=== PATIENT | female | born 1940 | race Caucasian/White ===

== ENCOUNTER 2017-09-15 15:11 | Emergency (ER) | payer MEDICARE, OTHER ==
--- NOTE | 2017-09-15 15:51 | RAD ---
PA AND LATERAL CHEST: 09/15/17 HISTORY: Cough. Heart size is within normal limits. There are atherosclerotic changes of the aorta. There is some lora ear atelectasis in the right middle lobe. No focal infiltrative process. Slight elevation of the righ t hemidiaphragm. IMPRESSION: Linear atelectasis or scarring in the right middle lobe. POS: [facility]
== END 2017-09-15 16:05 | disposition home or self-care (01) ==
LOC: SCSER 15:11
DX: J40 Bronchitis, not specified as acute or chronic (principal); I48.91 Unspecified atrial fibrillation; I10 Essential (primary) hypertension; Z79.899 Other long term (current) drug therapy
CPT/HCPCS: 71020

== ENCOUNTER 2017-09-30 07:42 | Emergency (ER) | payer MEDICARE, OTHER ==
[2017-09-30 10:11] LABS: Bilirubin Negative (Negative); Blood, Urine Negative (Negative); Glucose, Urine (Dipstick) Negative (Negative); Ketone, Urine Negative (Negative); Nitrite Negative (Negative); Protein, Urine (Dipstick) Negative (Neg-Trace); Urobilinogen 0.2 mg/dL (0.2-1.0)
[2017-09-30 10:49] LABS: #Lymphocytes 1.2 thou/uL (1.20-3.40); #Monocytes 0.3 thou/uL (0.11-0.59); #Neutrophils 3.9 thou/uL (1.40-6.50); %Basophils 0.8 % (0.0-1.0); %Eosinophils 0.8 % (0.0-10.0); %Lymphocytes 21.4 % (21.0-51.0); %Monocytes 4.9 % (0.0-10.0); Hematocrit 36.2 % (36.0-47.0); Mean Platelet Volume 6.5 fL (7.4-10.4); Red Blood Cell (RBC) Count 3.76 mill/uL (4.20-5.40); White Blood Cell (WBC) Count 5.4 thou/uL (4.8-10.8)
[2017-09-30 11:05] LABS: ALT (SGPT) 15 U/L (8-55); AST (SGOT) 20 U/L (5-34); Alkaline Phosphatase 41 U/L (40-150); Anion Gap 11 mmol/L (10-20); BUN (Urea Nitrogen) 12 mg/dL (9.8-20.1); Bilirubin, Total 0.5 mg/dL (0.2-1.2); CK (CPK) 67 U/L (29-168); Calc. Creatinine Clearance 0 mL/min (70-130); Calcium 9.2 mg/dL (7.8-10.44); Carbon Dioxide 23 mmol/L (23-31); Chloride 111 mmol/L (98-107); Estimated GFR-MDRD 90; Globulin 2.5 g/dL (2.4-3.5); Protein, Total 6.3 g/dL (6.0-8.3)
[2017-09-30 11:08] LABS: Troponin I Less than 0.010 ng/mL (< 0.028)
--- NOTE | 2017-09-30 12:08 | ULT ---
ULTRASOUND WITH DOPPLER DUPLEX VENOUS LOWER EXTREMITIES BILATERAL: HISTORY: A 77-year-old female with bilateral lower extremity edema. TECHNIQUE: Color flow Doppler, spectral waveform analysis of pulsed Doppler, and najera-scale imaging with nena augustin and augmentation, were used to evaluate the bilateral common femoral, femoral, popliteal, runway model ior tibial, and superficial femoral, veins; and the proximal portions of the profunda femoral and gre ater saphenous, veins. FINDINGS: There is normal compressibility, demonstration of blood flow by color Doppler and pulsed Doppler, and response to augmentation, in all interrogated veins. IMPRESSION: Negative. No deep vein thrombosis in the bilateral lower extremities. jn[] POS: [facility]
--- NOTE | 2017-09-30 12:09 | RAD ---
PORTABLE CHEST: COMPARISON: 11/07/12 study. History Chest pain. FINDINGS: Heart size is within normal limits. There are atherosclerotic changes of the aorta. The lungs are c lear of infiltrates. IMPRESSION: No active intrathoracic disease. POS: [facility]
[2017-09-30] MEDS ORDERED: hydrALAZINE 20 MG/ML VIAL ONE ×2 (12:45→13:42)
--- NOTE | 2017-09-30 13:00 | CT ---
CT OF BRAIN PERFORMED WITHOUT CONTRAST ENHANCEMENT: HISTORY: Elevated blood pressure and headache. FINDINGS: Ventricular and cisternal system shows some fairly age-appropriate change. There is decreased attenu ation of the periventricular white matter suggesting some chronic ischemic white matter change. Ther e is what is probably an old lacunar infarct in the right periventricular white matter. There are no signs of intracerebral hemorrhage or extraaxial fluid collections. The mastoid air cells and visual ized sinuses are clear. IMPRESSION: No acute intracranial abnormalities. POS: [facility]
--- NOTE | 2017-10-27 10:41 | EKG ---
Test Reason : Blood Pressure : / mmHG Vent. Rate : 062 BPM Atrial Rate : 062 BPM P-R Int : 152 ms QRS Dur : 098 ms QT Int : 396 ms P-R-T Axes : 056 -33 -51 degrees QTc Int : 401 ms Normal sinus rhythm Left axis deviation Nonspecific T wave abnormality Abnormal ECG Confirmed by JENN CEDILLO M.D. ([id number]), deputy editor in chief JOY HARDIN ([id number]) on 10/27/2017 10:41:26 AM Referred By: Confirmed By:JENN CEDILLO M.D.
== END 2017-09-30 15:05 | disposition home or self-care (01) ==
LOC: ERS 07:42
DX: I10 Essential (primary) hypertension (principal); I48.91 Unspecified atrial fibrillation; Z79.82 Long term (current) use of aspirin; Z79.899 Other long term (current) drug therapy
CPT/HCPCS: 70450; 71010; 80053; 81003; 82550; 82553; 83880; 84484; 85025; 93005; 93970; 96374; 96376; J0360

== ENCOUNTER 2017-10-17 08:46 | Outpatient (CLI) | payer MEDICARE, OTHER ==
--- NOTE | 2017-10-17 10:53 | CT ---
CT ABDOMEN AND PELVIS PRE AND POST IV CONTRAST: Technique: Multiple axial tomograms were obtained through the abdomen and pelvis pre and post IV cont rast enhancement. Post contrast images were obtained in a portal venous and delayed venous phase foll owing urographic protocol. History: Hematuria. Frequent UTIs. FINDINGS: Review of the noncontrast images shows no evidence of urinary tract calculus. Ureters appear normal. The urinary bladder is distended and appears unremarkable. There are numerous lesions involving the right kidney. At least two of these are exophytic and comple x. Posteriorly there is a 1.5 cm lesion with a peripheral calcification with Hounsfield units on the noncontrast study recorded at 49-50. Post contrast Hounsfield units were recorded at 51 indicating no significant enhancement and suggesting a complex cyst. Another complex exophytic lesion from the lat eral right kidney has precontrast density of 23 Hounsfield units. This lesion does not show significa nt enhancement. There are other smaller lower density lesions involving the right kidney which are montoya bcentimeter. 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 There are two ureters proximally. These ureters fus e in the upper abdomen. There may be one or two tiny low density foci in the left renal cortex which are subcentimeter and ca nnot be adequately characterized. No evidence of enhancing renal mass identified on either side. On t he delayed sequence, contrast secretion is seen in the collecting structures and these appear unremar kable with no filling defect identified. Lung bases are clear. Liver, spleen, and pancreas unremarkable. Small sliding diaphragmatic hernia. Stomach, duodenum and small bowel loops appear unremarkable. There is scattered diverticula seen thro ughout the colon. Aorta suggests calcification but is normal caliber. No adenopathy. Images through t he pelvis show evidence of hysterectomy. Osseous structures are unremarkable with degenerative changes seen. IMPRESSION: 1. There are numerous low density foci involving the right kidney. Two or three of these are exophyti c and at least two are complex. The larger one posteriorly has a peripheral calcification. These lesi ons suggest complex cystic lesions as discussed above. There are other tiny low density foci bilatera lly which are too small to adequately characterize. 2. No evidence of enhancing renal mass. No urinary tract calculus or hydronephrosis. 3. 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 The ureters fuse proximally. Both moiety appear unremarkable with no asymmetric dilatation. 4. Small sliding diaphragmatic hernia. 5. Scattered colonic diverticula throughout the colon. POS: [facility]
[2017-10-17] MEDS ORDERED: Iopamidol 370 76% 100 ML VIAL ONE (12:01)
== END 2017-10-17 08:47 | disposition home or self-care (01) ==
LOC: CT 08:46
PROVIDERS: ATTEND Urology
DX: N39.0 Urinary tract infection, site not specified (principal); K44.9 Diaphragmatic hernia without obstruction or gangrene; K57.32 Diverticulitis of large intestine without perforation or abscess without bleeding; Z87.448 Personal history of other diseases of urinary system
CPT/HCPCS: 74178

== ENCOUNTER 2017-10-24 12:42 | Outpatient (CLI) | payer MEDICARE, OTHER ==
--- NOTE | 2017-10-24 15:13 | MRI ---
MRI BRAIN WITH AND WITHOUT GADOLINIUM CONTRAST: History: Dizziness. FINDINGS: There is no evidence of acute intracranial hemorrhage or infarct. Chronic ischemic small vessel disea se is apparent within the periventricular white matter of each cerebral hemisphere. There is no mass effect, shift of midline structures, or abnormal areas of contrast enhancement. IMPRESSION: No acute intracranial abnormalities are demonstrated. POS: [facility]
== END 2017-10-24 12:43 | disposition home or self-care (01) ==
LOC: TBSIIMAG 12:42
PROVIDERS: ATTEND Internal Medicine
DX: N39.0 Urinary tract infection, site not specified (principal); Z87.448 Personal history of other diseases of urinary system
CPT/HCPCS: 70553

== ENCOUNTER 2018-04-23 10:03 | Emergency (ER) | payer MEDICARE ==
[2018-04-23 10:36] LABS: #Basophils 0.1 thou/uL (0.0-0.2); #Lymphocytes 0.2 thou/uL (1.20-3.40); #Monocytes 0.2 thou/uL (0.11-0.59); #Neutrophils 8.9 thou/uL (1.40-6.50); %Basophils 1.4 % (0.0-1.0); %Eosinophils 0.2 % (0.0-10.0); %Lymphocytes 2.4 % (21.0-51.0); %Monocytes 1.7 % (0.0-10.0); %Neutrophils 94.4 % (42.0-75.0); Hemoglobin 13.6 g/dL (12.0-16.0); Mean Corpuscular HGB CONC 34.3 g/dL (32.0-36.0); Mean Corpuscular Hemoglobin 32.6 pg (27.0-31.0); Mean Corpuscular Volume 95.2 fL (78.0-98.0); Mean Platelet Volume 6.9 fL (7.4-10.4); Platelet Count 179 thou/uL (130-400); RBC Distribution Width 12.3 % (11.5-14.5); Red Blood Cell (RBC) Count 4.18 mill/uL (4.20-5.40); White Blood Cell (WBC) Count 9.4 thou/uL (4.8-10.8)
[2018-04-23] MEDS ORDERED: Ondansetron ODT 4 MG TAB ONE (10:58)
[2018-04-23 10:59] LABS: ALT (SGPT) 17 U/L (8-55); AST (SGOT) 21 U/L (5-34); Albumin 4.2 g/dL (3.4-4.8); Alkaline Phosphatase 50 U/L (40-150); Anion Gap 17 mmol/L (10-20); BUN (Urea Nitrogen) 22 mg/dL (9.8-20.1); Bilirubin, Total 0.9 mg/dL (0.2-1.2); Calc. Creatinine Clearance 0 mL/min (70-130); Calcium 9.6 mg/dL (7.8-10.44); Carbon Dioxide 19 mmol/L (23-31); Chloride 107 mmol/L (98-107); Estimated GFR-MDRD 86; Globulin 2.5 g/dL (2.4-3.5); Glucose 129 mg/dL (83-110); Potassium 3.5 mmol/L (3.5-5.1); Protein, Total 6.7 g/dL (6.0-8.3); Sodium 139 mmol/L (136-145)
[2018-04-23 12:13] LABS: Bilirubin Small (Negative); Blood, Urine Negative (Negative); Clarity CLEAR (Clear); Glucose, Urine (Dipstick) Negative (Negative); Leukocyte Trace (Negative); Nitrite Negative (Negative); Protein, Urine (Dipstick) Trace mg/dL (Neg-Trace); Specific Gravity, Urine 1.027 (1.002-1.036); pH, Urine 6.5 (5.0-9.0)
[2018-04-23 12:14] LABS: Bacteria/HPF None Seen HPF (None Seen); Hyaline Casts/LPF 0-3 HYALINE CAST LPF (0-3 Hyaline); Pathc Cast-AUWi Flag 0.43 (0-2.49); Squamous Epithelial 0-3 HPF (0-3); WBC/HPF 0-3 HPF (0-3)
[2018-04-23 12:38] LABS: CKMB 1.6 ng/mL (0-6.6); Troponin I Less than 0.010 ng/mL (< 0.028)
== END 2018-04-23 15:03 | disposition home or self-care (01) ==
LOC: ERS 10:03
DX: R11.2 Nausea with vomiting, unspecified (principal); I48.91 Unspecified atrial fibrillation; I10 Essential (primary) hypertension; Z79.82 Long term (current) use of aspirin; Z79.899 Other long term (current) drug therapy
CPT/HCPCS: 36415; 80053; 81003; 81015; 82553; 83690; 84484; 85025; 93005; 96360; 96361; Q0162

== ENCOUNTER 2018-05-27 06:43 | Outpatient (CLI) | payer MEDICARE, OTHER | END 2018-05-27 06:44 | disposition home or self-care (01) | LOC: BICULT 06:43 | PROVIDERS: ATTEND Internal Medicine Gastroenterology | DX: K21.9 Gastro-esophageal reflux disease without esophagitis (principal); R10.11 Right upper quadrant pain | CPT/HCPCS: 76705 ==

== ENCOUNTER 2018-09-10 12:13 | Outpatient (CLI) | payer MEDICARE ==
--- NOTE | 2018-09-10 15:05 | MRI ---
MRI LUMBAR SPINE WITHOUT CONTRAST: Comparison: None. History: Chronic low back pain and lumbar stenosis. Technique: Multiplanar, multisequence MRI images were obtained of the lumbar spine without contrast. FINDINGS: Generalized disc desiccation is seen. Vertebral bodies demonstrate normal height and alignment withou t acute fracture or subluxation. The conus medullaris terminates normally at L1. There are multiple s mall cysts in the right kidney. The other prevertebral and paraspinal soft tissues are unremarkable. T12-L1: No significant posterior bulge or protrusion. No posterior facet arthrosis. No neural foramin al or central canal stenosis. L1-2: A small disc osteophyte complex is seen. No posterior facet arthrosis. Mild central canal steno sis. Mild bilateral neural foraminal stenosis. L2-3: A small disc osteophyte complex is seen. No posterior facet arthrosis. Mild to moderate central canal stenosis. Moderate bilateral neural foraminal stenosis. L3-4: Small disc osteophyte complex is seen. Mild posterior facet arthrosis. Mild central canal steno sis. Mild bilateral neural foraminal stenosis. L4-5: A moderate disc osteophyte complex is seen. Moderate bilateral posterior facet arthrosis. Moder ate to severe central canal stenosis. Moderate bilateral neural foraminal stenosis. L5-S1: A moderate disc osteophyte complex is seen. No posterior facet arthrosis. Mild ventral canal s tenosis. Mild bilateral neural foraminal stenosis. IMPRESSION: Degenerative changes of the lumbar spine as above. This is greatest at L4-5. POS: [facility]
--- NOTE | 2018-09-10 15:32 | RAD ---
FOUR VIEWS LUMBOSACRAL SPINE: Comparison: 03-06-17 History: Lumbar stenosis with neurogenic claudication. FINDINGS: AP, lateral, flexion and extension views of the lumbosacral spine were performed. There is a grade I anterolisthesis of L4 on L5, unchanged. The vertebral bodies demonstrate normal height without fractu re. Alignment is unchanged with flexion and extension. Small osteophytes are seen throughout the lumb ar spine. IMPRESSION: Degenerative changes of the lumbar spine with spondylolisthesis of L4 on L5. POS: [facility]
--- NOTE | 2018-09-10 15:51 | MRI ---
THORACIC SPINE MRI WITHOUT CONTRAST: HISTORY: Chronic back pain. Neural claudication. COMPARISON: None. TECHNIQUE: MRI of the thoracic spine is performed without intravenous Gadolinium administration. Multisequentia l, multiplanar imaging is performed. FINDINGS: Appropriate T1 marrow signal intensity of the thoracic vertebrae. Thoracic spine vertebral body heig ht is maintained. There is no fracture. Visualized mediastinum, lung parenchyma, and solid organs are unremarkable. Conus medullaris terminates at the inferior aspect of T12. The thoracic cord has a normal size and s ignal intensity. T2 hyperintensity in the liver measuring 5 mm. T2 hyperintensity in the right tabitha l cortex likely representing an exophytic cyst. T1-T2: Broad-based disk bulge. Moderate central canal stenosis. T2-T3: Central disk bulge. Mild central canal stenosis. T3-T4 through T4-T5: No significant posterior disk abnormality. No significant central canal stenos is. T5-T6, T6-T7, and T7-T8: Minimal disk bulge. No significant central canal stenosis. T8-T9 through T11-T12: No significant central canal stenosis. T12-L1: There is a disk-osteophyte complex. Mild central canal stenosis. Throughout the thoracic spine, neural foramen are patent. 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 POS: [facility]
== END 2018-09-10 12:14 | disposition home or self-care (01) ==
LOC: BICMRI 12:13
PROVIDERS: ATTEND Anesthesiology Pain Medicine
DX: M48.062 Spinal stenosis, lumbar region with neurogenic claudication (principal); M48.04 Spinal stenosis, thoracic region; M47.816 Spondylosis without myelopathy or radiculopathy, lumbar region; M43.16 Spondylolisthesis, lumbar region; M51.34 Other intervertebral disc degeneration, thoracic region
CPT/HCPCS: 72110; 72146; 72148

== ENCOUNTER 2018-10-15 11:21 | Emergency (ER) | payer MEDICARE ==
[2018-10-15] MEDS ORDERED: Acetaminophen 500 MG TAB ONE (12:00)
[2018-10-15 12:01] LABS: #Lymphocytes 1.2 thou/uL (1.20-3.40); #Monocytes 0.3 thou/uL (0.11-0.59); #Neutrophils 4.5 thou/uL (1.40-6.50); %Basophils 0.7 % (0.0-1.0); %Eosinophils 0.7 % (0.0-10.0); %Lymphocytes 19.5 % (21.0-51.0); %Monocytes 4.9 % (0.0-10.0); %Neutrophils 74.1 % (42.0-75.0); Hemoglobin 12.3 g/dL (12.0-16.0); Mean Corpuscular HGB CONC 35.1 g/dL (32.0-36.0); Mean Corpuscular Hemoglobin 31.1 pg (27.0-31.0); Mean Corpuscular Volume 88.6 fL (78.0-98.0); Mean Platelet Volume 7.2 fL (7.4-10.4); Platelet Count 148 thou/uL (130-400); RBC Distribution Width 12.3 % (11.5-14.5); Red Blood Cell (RBC) Count 3.96 mill/uL (4.20-5.40); White Blood Cell (WBC) Count 6.1 thou/uL (4.8-10.8)
[2018-10-15 12:10] LABS: ALT (SGPT) 17 U/L (8-55); AST (SGOT) 21 U/L (5-34); Albumin 4.2 g/dL (3.4-4.8); Alkaline Phosphatase 70 U/L (40-150); Anion Gap 15 mmol/L (10-20); BUN (Urea Nitrogen) 13 mg/dL (9.8-20.1); Bilirubin, Total 0.7 mg/dL (0.2-1.2); Calc. Creatinine Clearance 0 mL/min (70-130); Calcium 9.8 mg/dL (7.8-10.44); Carbon Dioxide 21 mmol/L (23-31); Chloride 109 mmol/L (98-107); Estimated GFR-MDRD 83; Globulin 2.8 g/dL (2.4-3.5); Glucose 97 mg/dL (83-110); Potassium 3.7 mmol/L (3.5-5.1); Sodium 141 mmol/L (136-145)
--- NOTE | 2018-10-15 12:39 | RAD ---
CHEST PA AND LATERAL: HISTORY: Chest pain. FINDINGS: Heart size is normal. Lungs are well expanded without focal areas of consolidation, pneumothorax, or pleural effusions. There is elevation of the right hemidiaphragm, which is stable since 09/15/2017. There are degenerative changes in the spine. IMPRESSION: No radiographic evidence of acute cardiopulmonary process. POS: [facility]
== END 2018-10-15 12:23 | disposition home or self-care (01) ==
LOC: SCSER 11:21
DX: T59.891A Toxic effect of other specified gases, fumes and vapors, accidental (unintentional), initial encounter (principal); I10 Essential (primary) hypertension; I48.91 Unspecified atrial fibrillation; Z79.899 Other long term (current) drug therapy
CPT/HCPCS: 71046; 80053; 84484; 85025; 93005

== ENCOUNTER 2020-08-21 19:21 | Observation (INO) | payer MEDICARE, OTHER ==
[2020-08-21] MEDS ORDERED: Lidocaine Viscous Sol 2% 15 ml UD Cup ONE (19:53)
[2020-08-21] MEDS ORDERED: Mag-Al 1200 mg/1200 mg/30 ML UDCUP ONE (19:53)
[2020-08-21] MEDS ORDERED: Aspirin 325 MG TAB ONE (19:53)
[2020-08-21] MEDS ORDERED: Famotidine 20 MG TAB ONE (19:53)
[2020-08-21] MEDS ORDERED: Nitroglycerin 2% Ointment 1 INCH/1 GM Packet ONE (19:54)
[2020-08-21 20:01] LABS: #Lymphocytes 1.7 thou/uL (1.20-3.40); #Monocytes 0.3 thou/uL (0.11-0.59); #Neutrophils 5.3 thou/uL (1.40-6.50); %Basophils 0.5 % (0.0-1.0); %Eosinophils 0.4 % (0.0-10.0); %Lymphocytes 22.9 % (21.0-51.0); %Monocytes 4.7 % (0.0-10.0); %Neutrophils 71.6 % (42.0-75.0); Hemoglobin 13.8 g/dL (12.0-16.0); Mean Corpuscular HGB CONC 34.9 g/dL (32.0-36.0); Mean Corpuscular Hemoglobin 33.2 pg (27.0-31.0); Mean Corpuscular Volume 95.3 fL (78.0-98.0); Mean Platelet Volume 7.1 fL (7.4-10.4); Platelet Count 181 thou/uL (130-400); RBC Distribution Width 11.9 % (11.5-14.5); Red Blood Cell (RBC) Count 4.14 mill/uL (4.20-5.40); White Blood Cell (WBC) Count 7.4 thou/uL (4.8-10.8)
[2020-08-21] MEDS ORDERED: Famotidine/PF 20 mg/2ml Vial ONE (20:04)
[2020-08-21 20:06] LABS: INR-International Normal Ratio 0.9; Prothrombin Time 12.5 sec (12.0-14.7)
[2020-08-21 20:07] LABS: PTT 32.2 sec (22.9-36.1)
--- NOTE | 2020-08-21 20:07 | RAD ---
PORTABLE CHEST: 08/21/20 HISTORY: Syncope and chest pain. COMPARISON: 09/30/17 exam. Heart size is within normal limits. Mediastinal structures are unremarkable. There are atheroscleroti c changes of the aorta there is mild elevation of the right hemidiaphragm. Some linear scarring in th e right base. IMPRESSION: No active intrathoracic disease. POS: [facility]
[2020-08-21 20:28] LABS: ALT (SGPT) 14 U/L (8-55); AST (SGOT) 23 U/L (5-34); Albumin 4.1 g/dL (3.4-4.8); Alkaline Phosphatase 85 U/L (40-110); Anion Gap 17 mmol/L (10-20); BUN (Urea Nitrogen) 18 mg/dL (9.8-20.1); Bilirubin, Total 0.4 mg/dL (0.2-1.2); Calc. Creatinine Clearance 0 mL/min (70-130); Calcium 9.4 mg/dL (7.8-10.44); Carbon Dioxide 21 mmol/L (23-31); Chloride 104 mmol/L (98-107); Estimated GFR-MDRD 78; Globulin 2.8 g/dL (2.4-3.5); Glucose 133 mg/dL (83-110); Lipase 10 U/L (8-78); Potassium 4.2 mmol/L (3.5-5.1); Protein, Total 6.9 g/dL (6.0-8.3); Sodium 138 mmol/L (136-145)
--- NOTE | 2020-08-21 21:20 | PDOC.HHP ---
Hospitalist HPI - History of Present Illness Chest pain History of Present Illness: PCP: Dr. Husain The patient is an 80-year-old female with a past medical history significant for hypertension, paroxysmal A. fib (on baby aspirin), GERD and IBS that presents to the emergency department for the above complaint. Patient reports the acute onset of epigastric pain at approximately 230 this afternoon. The pain was located to her epigastric region and right chest, described as dull and burning, "like severe reflux", exacerbated by nothing and relieved by nothing. She reports associated nausea and vomiting x1 episode. She denies any hematemesis, hematochezia or melena. She reports that she ate a baked potato with butter and cheese 2 hours prior to the onset of her symptoms. She reports that she does have "bad" reflux, but she has never had it this bad before. 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 She reports that her echocardiogram was normal. At that visit, her verapamil was discontinued and she was started on Cardizem 120 mg daily. She has taken it for the past 3 days. She reports that her last cardiac stress test was approximately 2 years ago. She denies any heart palpitations, lightheadedness or swelling to her lower extremities. She denies any shortness of breath, cough or wheezing. She denies any recent fever or illness. She denies any urinary symptoms. ED Course: VITAL SIGNS Sat Aug 21, 2020 19:24 ANA Dunham Dannette BP: 186/72, Pulse: 83, Resp: 20, Temp: 98.3 (Oral), O2 sat: 99 on (Room Air), T davon: 08/21/2020 19:24. VITAL SIGNS Sat Aug 21, 2020 20:10 ANA Rodriguez Jonathan BP: 175/74 (Right Arm), MAP: 107, Pulse: 68, Resp: 18, Pain: 3 (Burning), O2 sat: 99 on (Room Air), Time: 08/21/2020 20:10. VITAL SIGNS Sat Aug 21, 2020 20:45 ANA Rodriguez Jonathan BP: 154/68 (Right Arm), Pulse: 70, Resp: 16, Pain: 0, O2 sat: 100 on (Room Air), Time: 08/21/2020 20:45. Medication ministration: famotidine (PF) 20 mg IV Push Given 20:06 08/21/2020 aspirin oral 325 mg Oral Given 20:02 08/21/2020 GI COCKTAIL - WHITE 40 mL Oral Given 20:00 08/21/2020 Nitro-Bid transdermal 1 inch Topical Given 20:00 08/21/2020 Hospitalist ROS - Review of Systems All other systems reviewed; all pertinent +/- noted in HPI/Subj - Medication Medications: aspirin oral Sat Aug 21, 2020 19:47 ANA Rodriguez, Yvan TABLET : Strength - 81 mg : ORAL Patient Dose: 81 mg Oral once a day. Cardizem oral Sat Aug 21, 2020 19:47 ANA Rodriguez, Yvan TABLET : Strength - 120 mg : ORAL Patient Dose: 120 mg Oral once a day. losartan Sat Aug 21, 2020 19:48 ANA Rodriguez, Yvan tablet : Strength - 100 mg : ORAL Patient Dose: 120 mg Oral once a day (in the evening). Nitrofurantoin prophylaxis for frequent UTIs Omeprazole unknown dosing Tums as needed Allergies: No known drug allergies Hospitalist History - Past Medical History Cardiac: reports: AFIB (Paroxysmal on baby aspirin), HTN Gastrointestinal: reports: GERD, Irritable bowel disease Renal/: reports: UTI (Frequent, on prophylactic nitrofurantoin) - Past Surgical History Past Surgical History: reports: Appendectomy, Cholecystectomy, Hysterectomy, Other (Left leg surgery) - Family History Family History: reports: cardiac disorder (Sister), cerebrovascular accident (Sister), diabetes mellitus (Sister) - Social History Smoking Status: Never smoker Alcohol: reports: None Drugs: reports: none Living Situation: With Family Occupation: Retired Activity level: independent ambulation - Exam General Appearance: NAD, awake alert Eye: anicteric sclera ENT: normocephalic atraumatic Neck: supple, symmetric, no JVD Heart: RRR, no murmur, no gallops, no rubs, normal peripheral pulses Respiratory: CTAB, no wheezes, no rales, no ronchi, normal chest expansion, no tachypnea Gastrointestinal: soft, non-distended, no bruit, no guarding, no rigidity. negative: normal bowel sounds (Hyperactive) Extremities: no cyanosis, no edema Skin: no rashes Neurological: no weakness, no focal deficits Musculoskeletal: normal tone, normal strength Psychiatric: normal affect, normal behavior, A&O x 3 Hospitalist Results - Labs Result Diagrams: 08/22/20 03:22 08/21/20 19:50 Lab results: WBC 7.4 thou/uL (4.8-10.8) 08/21/20 19:50 Hgb 13.8 g/dL (12.0-16.0) 08/21/20 19:50 Hct 39.5 % (36.0-47.0) 08/21/20 19:50 MCV 95.3 fL (78.0-98.0) 08/21/20 19:50 Plt Count 181 thou/uL (130-400) 08/21/20 19:50 Neutrophils % 71.6 % (42.0-75.0) 08/21/20 19:50 Sodium 138 mmol/L (136-145) 08/21/20 19:50 Potassium 4.2 mmol/L (3.5-5.1) 08/21/20 19:50 Chloride 104 mmol/L (98-107) 08/21/20 19:50 Carbon Dioxide 21 mmol/L (23-31) L 08/21/20 19:50 BUN 18 mg/dL (9.8-20.1) 08/21/20 19:50 Creatinine 0.72 mg/dL (0.6-1.1) 08/21/20 19:50 Glucose 133 mg/dL (83-110) H 08/21/20 19:50 Calcium 9.4 mg/dL (7.8-10.44) 08/21/20 19:50 Total Bilirubin 0.4 mg/dL (0.2-1.2) 08/21/20 19:50 AST 23 U/L (5-34) 08/21/20 19:50 ALT 14 U/L (8-55) 08/21/20 19:50 Alkaline Phosphatase 85 U/L (40-110) 08/21/20 19:50 Troponin I 0.012 ng/mL (< 0.028) 08/21/20 19:50 Serum Total Protein 6.9 g/dL (6.0-8.3) 08/21/20 19:50 Albumin 4.1 g/dL (3.4-4.8) 08/21/20 19:50 Lipase 10 U/L (8-78) 08/21/20 19:50 - EKG Interpretation EK lead EKG interpreted by Emergency Department Physician at time of study, 12 lead EKG shows normal sinus rhythm, Rate (beats per minute): 75, with no ectopics, Interpretation: normal EKG, Conduction normal, ST segments normal, T waves, T wvae flattening in the humaira-lateral leads, [place] normal, Rate 75; NM 170, QRS 102, QTc 413. - Radiology Interpretation Chest x-ray Status: report reviewed by me Additional Comment: IMPRESSION: No active intrathoracic disease. Hospitalist H&P A/P - Problem (1) Chest pain Code(s): R07.9 - CHEST PAIN, UNSPECIFIED Status: Acute (2) Paroxysmal A-fib Code(s): I48.0 - PAROXYSMAL ATRIAL FIBRILLATION Status: Chronic (3) Hypertension Code(s): I10 - ESSENTIAL (PRIMARY) HYPERTENSION Status: Chronic (4) GERD (gastroesophageal reflux disease) Code(s): K21.9 - GASTRO-ESOPHAGEAL REFLUX DISEASE WITHOUT ESOPHAGITIS Status: Chronic - Plan Plan: 80/F with PMH HTN, paroxysmal A. fib and GERD presents for chest pain. Admit telemetry floor, observation status. Expected length of stay less than 2 midnights. Presented hypertensive with NL HR, RR, SPO2, afebrile. EKG NSR, no ST elevations. CXR no acute process. Troponin 0.012 Recent echocardiogram 08/[address] garcia. #Chest pain Symptoms significantly improved after GI cocktail, Pepcid, Nitropaste and aspirin. Given her story, likely due to GERD. Will rule out ACS. Heart score 5. Trend troponins, check TSH, FLP, BMP, mag level, UA. Continue aspirin, Nitropaste, add statin. N.p.o. after midnight. Nuc med cardiac stress test. #Paroxysmal A. fib Presented normal sinus rhythm Was previously controlled on verapamil. 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 Started Cardizem 120 mg daily. #Hypertension Patient presented BP 186/72. Restart home dose losartan. Continue to monitor blood pressure. We will add as needed antihypertensives if necessary. #GERD Takes omeprazole and Tums at home. Start patient on Protonix. Tums as needed. SCDs for DVT prophylaxis. Protonix for GI prophylaxis. Full code. Discussed case with Dr. Edward Witt.
[2020-08-21] MEDS ORDERED: Nitroglycerin 0.4 MG TAB (25 Tab Bottle) SL PRN (21:58)
[2020-08-21] MEDS ORDERED: Ondansetron PF 4 MG/2 ML Vial IVP PRN (22:01)
[2020-08-21] MEDS ORDERED: Ondansetron ODT 4 MG TAB PO PRN (22:01)
[2020-08-21] MEDS ORDERED: Acetaminophen 325 MG TAB PO PRN (22:01)
[2020-08-21] MEDS ORDERED: Calcium Carbonate 500 MG ChewTAB PO PRN (22:01)
[2020-08-21] MEDS ORDERED: Mag-Al 1200 mg/1200 mg/30 ML UDCUP PO PRN (22:03)
[2020-08-21 23:41] LABS: Troponin I 0.017 ng/mL (< 0.028)
[2020-08-21] MEDS ORDERED: Sodium Chloride 0.9% 1,000 ML IV SCH (23:59)
[2020-08-22 01:24] VITALS: BMI 23.6
[2020-08-22 02:15] LABS: Troponin I 0.017 ng/mL (< 0.028)
[2020-08-22 02:54] LABS: Bacteria/HPF None Seen HPF (None Seen); Bilirubin Negative (Negative); Blood, Urine Negative (Negative); Clarity Clear (Clear); Glucose, Urine (Dipstick) Normal (Negative); Ketone, Urine Negative (Negative); Leukocyte 75 Leu/uL (Negative); Nitrite Negative (Negative); Protein, Urine (Dipstick) Negative (Neg-Trace); RBC/HPF 0-3 HPF (0-3); Specific Gravity, Urine 1.008 (1.002-1.036); Squamous Epithelial 0-3 HPF (0-3); Urobilinogen Normal mg/dL (Less than 2)
[2020-08-22 04:16] LABS: #Lymphocytes 1.5 thou/uL (1.20-3.40); #Monocytes 0.3 thou/uL (0.11-0.59); #Neutrophils 3.7 thou/uL (1.40-6.50); %Basophils 0.7 % (0.0-1.0); %Eosinophils 0.6 % (0.0-10.0); %Lymphocytes 26.3 % (21.0-51.0); %Monocytes 5.7 % (0.0-10.0); %Neutrophils 66.7 % (42.0-75.0); Hemoglobin 11.5 g/dL (12.0-16.0); Mean Corpuscular HGB CONC 34.5 g/dL (32.0-36.0); Mean Corpuscular Hemoglobin 33.1 pg (27.0-31.0); Mean Corpuscular Volume 95.8 fL (78.0-98.0); Mean Platelet Volume 8.2 fL (7.4-10.4); Platelet Count 155 thou/uL (130-400); RBC Distribution Width 11.8 % (11.5-14.5); Red Blood Cell (RBC) Count 3.49 mill/uL (4.20-5.40); White Blood Cell (WBC) Count 5.5 thou/uL (4.8-10.8)
[2020-08-22 04:32] LABS: Anion Gap 12 mmol/L (10-20); BUN (Urea Nitrogen) 13 mg/dL (9.8-20.1); Calc. Creatinine Clearance 70 mL/min (70-130); Calcium 8.8 mg/dL (7.8-10.44); Carbon Dioxide 23 mmol/L (23-31); Cardiac Risk 2.8 (Less than 4.5); Chloride 106 mmol/L (98-107); Cholesterol 149 mg/dl (< 200 Desired); Estimated GFR-MDRD Greater than 90; Glucose 109 mg/dL (83-110); HDL Cholesterol 53 mg/dL (>60 Neg Risk); LDL Cholesterol, Calculated 86 mg/dL; Potassium 3.9 mmol/L (3.5-5.1); Sodium 137 mmol/L (136-145); Triglycerides 50 mg/dL (Less than 150)
[2020-08-22] MEDS: Nitroglycerin 2% Ointment 1 INCH/1 GM Packet TOP SCH ×2 (04:47→12:35)
[2020-08-22] MEDS ORDERED: Aspirin 81 mg Enteric Coated Tablet PO SCH (09:00)
[2020-08-22 11:08] VITALS: BP 134/73; TEMP 97.5
[2020-08-22 11:42] LABS: SARS-CoV-2 MS2 Positive; SARS-CoV-2 N Gene Negative; SARS-CoV-2 S Gene Negative; SARS-CoV-2 by NAA Not Detected (NotDetected); SARS-CoV-2 orf1ab Negative
[2020-08-22] MEDS ORDERED: ADENOSINE 60 MG/20 ML VIAL ONE (12:00)
[2020-08-22] MEDS ORDERED: Losartan 25 MG TAB PO SCH ×2 (12:30→21:00)
--- NOTE | 2020-08-22 12:37 | NM ---
EXAM: NM Cardiac Stress W EF WF PROVIDED CLINICAL HISTORY: Chest pain COMPARISON: None FINDINGS: This examination is performed as a pharmacologic myocardial perfusion stress test after the administr ation of adenosine intravenously. There is a small area of diminished attenuation in the anteroseptal left ventricular wall distally an d at the apex on both the resting and stress acquisitions. No significant reversible defect is identified. Quantitative analysis also does not demonstrate a significant reversible defect. Gated im ages show normal ventricular wall motion and wall thickening. Calculated left ventricular ejection fraction is greater than 90%. IMPRESSION: 1. No significant reversible defect is seen in the left ventricular myocardium to suggest an area of ischemia. Small relatively fixed defect in the distal anteroseptal wall and at the apex may be related to soft tissue attenuation. 2. Normal LVEF of greater than 90%.
[2020-08-22] MEDS ORDERED: Atorvastatin Calcium 40 MG TAB PO SCH (21:00)
[2020-08-23] MEDS ORDERED: Losartan 25 MG TAB PO SCH (09:00)
--- NOTE | 2020-08-24 08:57 | DIS ---
DATE OF ADMISSION: 08/21/2020 DATE OF DISCHARGE: 08/22/2020 DISCHARGE MEDICATIONS: Discharge medications are same as admission medications. FOLLOWUP: Follow up with Dr. Husain and Dr. Garcia as scheduled. The patient was evaluated on the day of discharge. Denies any new complaints. No chest pain, shortness of breath, palpitations reported. Vital signs showed temperature 97.8 with pulse rate of 62, respirations of 18 with blood pressure 132/61, O2 saturation 95% on room air. BRIEF HOSPITAL COURSE: The patient is an 80-year-old female with GERD and atrial fibrillation, presented to the emergency room with chest discomfort. Please refer to the history and physical for further details. The patient was admitted to the hospital with a diagnosis of chest discomfort, rule out acute coronary syndrome. Serial troponins remained negative. She underwent exercise Cardiolite stress test that was negative for reversible ischemia. There was no wall motion abnormality. Ejection fraction calculated was greater than 90%. There was a small relatively fixed defect in the distal anteroseptal wall and at the apex that may be from soft tissue attenuation. She is chest pain free at this time. Her symptoms were probably due to GERD. Omeprazole has been transitioned to Protonix. All other home medications were left unchanged. FINAL DIAGNOSES: 1. Chest discomfort, acute coronary syndrome ruled out. 2. Gastroesophageal reflux disease. 3. Paroxysmal atrial fibrillation. 4. Hypertension. The patient understands the above plan of care. Job ID: [id number]
== END 2020-08-22 14:00 | disposition home or self-care (01) ==
LOC: ERS 19:21 → 2NO 21:30
PROVIDERS: ADMIT Internal Medicine; ATTEND Internal Medicine
DX: R07.89 Other chest pain (principal); K21.9 Gastro-esophageal reflux disease without esophagitis; I48.0 Paroxysmal atrial fibrillation; I10 Essential (primary) hypertension; K58.9 Irritable bowel syndrome, unspecified; Z79.82 Long term (current) use of aspirin; Z79.899 Other long term (current) drug therapy; Z20.828 Contact with and (suspected) exposure to other viral communicable diseases
CPT/HCPCS: 71045; 78452; 80048; 80061; 81001; 83690; 83735; 83880; 84484 ×3; 85025; 85610; 85730; 93005; 93017; 94760 ×2; 96361; 96374; 96375; 99285; A9500; G0378 ×2; U0003; 36415; 80053; 84443; 87635; J0153; J2405; Q0162; S0028

== ENCOUNTER 2023-12-03 10:07 | Outpatient (CLI) | payer MEDICARE | END 2023-12-03 10:08 | disposition home or self-care (01) | LOC: BICMAMMO 10:07 | PROVIDERS: ATTEND Family Medicine | DX: M81.0 Age-related osteoporosis without current pathological fracture (principal); M85.88 Other specified disorders of bone density and structure, other site | CPT/HCPCS: 77080 ==